=== PATIENT | female | born 1960 | race Caucasian/White ===

== ENCOUNTER → 2019-06-03 | Outpatient (CLI) | payer BC ==
[~2019-06-03] MED LIST: APPLTAB3 PO; ASPI81TA85 PO; ATOR1TAB19 PO; ELIQ5TAB PO; FURO20TA2 PO; GLUC100013 PO; KLOR20TA42 PO; LOSA100T50 PO; MAGN400T3 PO; METF10004 PO; METO1TAB32 PO; OMEP-221 PO; OXYB5TAB10 PO; STEG5TAB PO
== END ==
LOC: M LAB 11:29
PROVIDERS: ATTEND Internal Medicine Medical Oncology
DX: I26.99 Other pulmonary embolism without acute cor pulmonale (principal)